=== PATIENT | female | born 1980 | race Caucasian/White ===

== ENCOUNTER → 2023-05-17 08:21 | Outpatient (CLI) | payer BC, SELFPAY ==
--- NOTE | ~2023-05-17 | MM_ITS ---
EXAMINATION: MM screening hayes BI w tiffanie HISTORY: Screening mammogram TECHNIQUE: Craniocaudal and mediolateral oblique 3-D tomosynthesis images were obtained and synthetic 2-D images were generated. CAD analysis was submitted and interpreted. COMPARISON: Baseline examination. No prior mammogram is available for comparison at this institution. BREAST PARENCHYMAL COMPOSITION: There are scattered areas of fibroglandular density. FINDINGS: There is no evidence of suspicious mass, calcification, or architectural distortion to sugg est malignancy in either breast.. IMPRESSION: 1. No mammographic evidence of malignancy. 2. Recommend routine screening mammography in one year. BI-RADS Category 1: Negative Reviewed, dictated and finalized at location A. STRIAL X RAY OPERATOR
== END ==
PROVIDERS: PCP Nurse Practitioner Obstetrics & Gynecology; Visit Provider Nurse Practitioner Obstetrics & Gynecology
DX: Z12.31 Encounter for screening mammogram for malignant neoplasm of breast (principal)
CPT/HCPCS: 77063; 77067

== ENCOUNTER 2024-06-08 15:22 | Outpatient (CLI) | payer BC, SELFPAY ==
--- NOTE | ~2024-06-08 | MM_ITS ---
EXAMINATION: MM screening hayes BI w tiffanie HISTORY: Screening TECHNIQUE: Craniocaudal and mediolateral oblique 3-D tomosynthesis images were obtained and synthetic 2-D images were generated. CAD analysis was submitted and interpreted. COMPARISON: 05/17/2023 BREAST PARENCHYMAL COMPOSITION: Not dense: There are scattered areas of fibroglandular density. FINDINGS: There are developing asymmetries in the upper outer quadrant of the left breast. The right breast is stable without evidence for malignancy. IMPRESSION: 1. Developing left breast asymmetries. 2. Additional mammographic views and possible breast ultrasound are recommended. BI-RADS Category 0: Incomplete: Needs additional imaging evaluation. Reviewed, dictated and finalized at location B. ANCE ADVISER IMPRESSION: 1. Developing left breast asymmetries. 2. Additional mammographic views and possible breast ultrasound are recommended . BI-RADS Category 0: Incomplete: Needs additional imaging evaluation.
== END 2024-06-08 15:23 | disposition home or self-care (01) ==
LOC: MICIMG 15:26
PROVIDERS: PCP Family Medicine; Visit Provider Obstetrics & Gynecology
DX: Z12.31 Encounter for screening mammogram for malignant neoplasm of breast (principal); R92.8 Other abnormal and inconclusive findings on diagnostic imaging of breast
CPT/HCPCS: 77063; 77067

== ENCOUNTER 2024-08-11 09:54 | Outpatient (CLI) | payer OTHER, SELFPAY ==
--- NOTE | ~2024-08-11 | MMUS_ITS ---
EXAMINATION: MM diagnostic hayes LT w tiffanie, US breast LT limited HISTORY: Upper, outer left breast asymmetry TECHNIQUE: Additional 3-D tomosynthesis images of the left breast were performed and synthetic 2-D im ages were generated. CAD analysis was submitted and interpreted. High resolution limited left breast ultrasound was performed. COMPARISON: 06/08/2024, 05/17/2023 BREAST PARENCHYMAL COMPOSITION:Not Dense. There are scattered areas of fibroglandular density. FINDINGS: MAMMOGRAPHIC FINDINGS: Spot compression views demonstrate persistent low-density 11 mm mass at the upper, outer left breast. There is an additional possible 4 mm mass at the upper, outer left breast. ULTRASOUND: At 2:00 position left breast, 3 cm of the nipple, there is a 1.2 x 1.2 x 0.8 cm cluster of cysts vers us multiseptated cyst. At the 2:00 position left breast, 7 cm from the nipple, there is a 6 mm renifo rm lymph node with fatty hilum. IMPRESSION: 1.2 cm septated cyst versus cluster of cysts at the 2:00 position left breast, as detailed above. Six -month follow-up ultrasound recommended to reassess. BI-RADS category 3, probably benign findings. Reviewed, dictated and finalized at location M. IMPRESSION: 1.2 cm septated cyst versus cluster of cysts at the 2:00 position left breast, as detailed above. Six-month follow-up ultrasound recommended to reassess. BI-RADS category 3, probably benign findings.
== END 2024-08-11 09:55 | disposition home or self-care (01) ==
LOC: MICIMG 09:56
PROVIDERS: PCP Family Medicine; Visit Provider Obstetrics & Gynecology
DX: R92.8 Other abnormal and inconclusive findings on diagnostic imaging of breast (principal)
CPT/HCPCS: 76642; 77061; 77065; G0279